=== PATIENT | female | born 1970 | race Caucasian/White ===

== ENCOUNTER 2021-06-07 10:33 | Emergency (ER) | payer OTHER ==
[~2021-06-07] VITALS: Ht 157.5 cm; Wt 59.1 kg
[2021-06-07 11:06] VITALS: TEMP 98.8
[2021-06-07] MEDS ORDERED: NORCO 325 MG-51 TAB PO (11:37)
[2021-06-07] MEDS ORDERED: MEDROL 4MG DOSPA4 MG PO (11:37)
[2021-06-07 11:58] VITALS: BP 105/66; PULSE 72
== END 2021-06-07 12:02 | disposition home or self-care (01) ==
LOC: COL.ER 10:33
DX: S39.012A Strain of muscle, fascia and tendon of lower back, initial encounter (principal); Z87.39 Personal history of other diseases of the musculoskeletal system and connective tissue; Z88.6 Allergy status to analgesic agent; W01.0XXA Fall on same level from slipping, tripping and stumbling without subsequent striking against object, initial encounter; Y93.01 Activity, walking, marching and hiking

== ENCOUNTER → 2023-02-02 | Outpatient (CLI) | payer OTHER ==
[~2023-02-02] MED LIST: MEDROL 4MG DOSPA4 MG PO; NORCO 325 MG-51 TAB PO
== END ==
LOC: COL.RAD 12:40
DX: J32.9 Chronic sinusitis, unspecified (principal); G62.9 Polyneuropathy, unspecified; G50.1 Atypical facial pain
CPT/HCPCS: A9575